=== PATIENT | female | born 1980 | race Caucasian/White ===

== ENCOUNTER 2017-10-10 02:50 | Emergency (ER) | payer OTHER ==
[~2017-10-10] VITALS: Ht 162.6 cm; Wt 93.0 kg
--- NOTE | 2017-10-10 03:48 | PHYS DOC ---
Past History Past Medical History: Anxiety, GERD Additional Past Medical Histor: ADHD, factor V Leiden deficiency, anxiety, reflux, neuropathy, seasonal all Smoking: Non-smoker Alcohol Use: None Drug Use: None Adult General Chief Complaint Chief Complaint: COUGH HPI HPI Patient is a pleasant 37-year-old female with history of factor V Leiden deficiency and prior pulmonary embolism in 2013 on chronic Coumadin therapy with a history of reflux, ADHD, chronic anxiety, inflammation, peripheral neuropathy, seasonal allergies, insomnia, restless leg syndrome, and chronic pain who presents with cough and tingling of her week. She was seen by her primary care doctor Dr. Weinstein placed on a course of Tamiflu for flulike symptoms as the family had similar symptoms in the past. He comes in today because his chest pain associated with her cough has gotten worse. It is center of her chest only there when he coughs with mild sore throat, no production with his cough. No particular shortness of breath other than with cough. She's got no exertional dyspnea, she feels tired and frustrated that she is achy all over. Patient denies any travel outside the country or recent antibiotic use. She's been trying [id number] medications without much in way of improvement and clearing Sudafed, Tessalon Perles and TheraFlu Review of Systems Review of Systems Constitutional: Fevers and chills at home subjectively Eyes: Denies change in visual acuity, redness, or eye pain [] HENT: Moderate nasal congestion and sore throat with cough Respiratory: Nonproductive cough no shortness of breath Cardiovascular: No additional information not addressed in HPI [] GI: Denies abdominal pain, nausea, vomiting, bloody stools or diarrhea [] : Denies dysuria or hematuria [] Musculoskeletal: Denies back pain or joint pain [] Integument: Denies rash or skin lesions [] Neurologic: Denies headache, focal weakness or sensory changes she has generalized myalgias[] Endocrine: Denies polyuria or polydipsia [] All other systems were reviewed and found to be within normal limits, except as documented in this note. Physical Exam Physical Exam Constitutional: Well developed, well nourished, patient is obese nondiaphoretic not short of breath she is obviously uncomfortable and very anxious HENT: Normocephalic, atraumatic, bilateral external ears normal, oropharynx moist mild erythema without any oral exudates, nose normal. TMs clear bilaterally no facial tenderness to palpation or swelling.[] Neck: Normal range of motion, no tenderness, supple, no stridor. [] Cardiovascular:Heart rate regular rhythm, no murmur [] Lungs & Thorax: Bilateral breath sounds clear to auscultation [] Skin: Warm, dry, no erythema, no rash. Neurologic: Alert and oriented X 3, normal motor function, normal gait Psychologic: Patient is somewhat anxious[] EKG EKG [] Radiology/Procedures Radiology/Procedures [] Course & Med Decision Making Course & Med Decision Making Pertinent Labs and Imaging studies reviewed. (See chart for details) This patient with a history of anxiety, factor V Leiden deficiency and multiple medical problems include reflux ADHD and seasonal allergies presents with chest pain that began with a cough since continued to worsen with this cough for the last week or so. Patient's symptoms are now continuous she is very anxious on physical exam and she has myalgias consistent with the flu. Given 2 by mouth hydrocodone and Ativan on arrival to help with her symptoms as we screened her for flu and did PA and lateral chest x-ray. PA and lateral chest x-ray read by me at approximately 4:30 AM demonstrates no occult pulmonary infiltrate, pneumothorax or pneumomediastinum. Patient is still very anxious pending influenza. Swab at 5:10 AM is returned negative, patient is still in a great deal of distress. Anxious despite giving treatment and not having any cough here in the emergency department we have decided to move her from the fast track to regular bed placement IV line for fluids antiemetics pain medications and EKG and appropriate cardiac workup. But I will check her INR to ensure that her Coumadin levels are therapeutic and if necessary complete a CT angios the chest to look for other etiologies of her chest pain. Time is now 6 AM and will care to the oncoming physician Dr. Garcia, and is continued evaluation and response to therapy. Differential diagnosis for chest pain: Pericarditis, myocarditis, endocarditis, pneumothorax, pneumonia, aortic dissection, esophageal spasm, esophagitis, peptic ulcer disease, acute coronary syndrome, mediastinitis, Boerhaave syndrome , musculoskeletal chest wall pain, costochondritis, intercostal strain, rib fracture, pulmonary contusion, pneumonitis, pleural effusion, pericardial effusion, pericardial tamponode, and pleurisy. Considered upon arrival. History: Can be used just for disposition and risk stratification Highly suspicious 2 points moderately suspicious 1. slightly suspicious 0 point EKG: ST segment depression 2. nonspecific repolarization disturbance 1. normal 0 point Age: Greater than 65 2 points, 65-45 1., less than 45 years old 0 points Risk factors:> 3 risk factors 2 points, 1-2 risk factors one point, no risk factors 0 point Troponin: > 2 times normal 2 points, 1-2 times normal 1., normal limits 0 point Total score: Score % pts MACE/n MACE Policy 0-3 32% 1.9% 0.05% Discharge 4-6 51% 413/3136 13% 1.3% Observation Risk management 7-10 17% 518/1045 50% 2.8% Observation Treatment, CAG 0717 [facility] to [facility] 0600 pending his FOR PT/INR. Patient had INR of 4.1 and it was sent for possible pe and instructed to hold on Coumadin today and follow up with her primary care physician for recheck INR tomorrow. EKG at 0 624 showed normal sinus rhythm at rate of 71 with T wave abnormality in anteroseptal dates and prolonged QT without acute ST and T wave abnormality. Liver function tests was mildly elevated and patient instructed to follow up with her primary care physician. Patient treated with several medications including Dilaudid and Ativan by nighttime ER physician and her O2 sat dropped to 90s and was started on oxygen and later on her O2 sat increased to 95% at room air. Dragon Disclaimer Dragon Disclaimer This electronic medical record was generated, in whole or in part, using a voice recognition dictation system. Departure Departure: Impression: Primary Impression: Pleurisy Additional Impressions: Pleuritic chest pain Elevated liver function tests Anticoagulated on Coumadin Anxiety Disposition: HOME, SELF-CARE (At 0717) Condition: IMPROVED Referrals: GUZMAN WEINSTEIN MD (PCP) Patient Instructions: Pleurisy Additional Instructions: Do not take Coumadin today and check with your care physician tomorrow for checking INR Take plenty of liquids Return to ER if not getting better Scripts Methylprednisolone (MEDROL) 4 Mg Tab.ds.pk 1 PKG PO UD, #1 PKG Prov: FIONA GARCIA MD 10/10/17 Problem Qualifiers GEOVANI RICO MD Oct 10, 2017 03:48 FIONA GARCIA MD Oct 10, 2017 07:24
[2017-10-10] MEDS ORDERED: HYDROcodone/APAP 5/325MG 1 TAB TABLET PO ONE (04:00)
[2017-10-10] MEDS ORDERED: LORazepam 1 MG TABLET PO ONE (04:00)
[2017-10-10 05:02] LABS: INFLUENZA A PATIENT NEGATIVE (NEGATIVE); INFLUENZA B PATIENT NEGATIVE (NEGATIVE)
[2017-10-10] MEDS ORDERED: HYDROmorphone PF 2 MG/ML VIAL IV/SQ PRN (05:15)
[2017-10-10] MEDS ORDERED: IV NORMAL SALINE 1,000ML 1,000 ML IV ONE (06:00)
[2017-10-10 06:04] LABS: BASO # 0.1 x10^3/uL (0.0-0.2); BASO % 1 % (0-3); EOS # 0.1 x10^3/uL (0.0-0.7); EOS % 1 % (0-3); HEMATOCRIT 35.3 % (36.0-47.0); HEMOGLOBIN 11.4 g/dL (12.0-15.5); LYMPH # 1.9 x10^3/uL (1.0-4.8); LYMPH % 15 % (24-48); MEAN CORPUSCULAR HEMOGLOBIN 27 pg (25-35); MEAN CORPUSCULAR HGB CONC 32 g/dL (31-37); MEAN CORPUSCULAR VOLUME 83 fL (79-100); MONO # 0.5 x10^3/uL (0.0-1.1); MONO % 4 % (0-9); NEUT # 10.2 x10^3uL (1.8-7.7); NEUT % 80 % (31-73); PLATELET COUNT 379 x10^3/uL (140-400); RED BLOOD COUNT 4.23 x10^6/uL (3.50-5.40); RED CELL DISTRIBUTION WIDTH 17.9 % (11.5-14.5); WHITE BLOOD COUNT 12.7 x10^3/uL (4.0-11.0)
[2017-10-10 06:38] LABS: ALBUMIN 3.4 g/dL (3.4-5.0); CALCIUM 8.5 mg/dL (8.5-10.1); CREATININE 0.9 mg/dL (0.6-1.0); DIRECT BILIRUBIN 0.1 mg/dL (0.0-0.2); GFR 69.7; POTASSIUM 3.5 mmol/L (3.5-5.1); TOTAL BILIRUBIN 0.3 mg/dL (0.2-1.0); TOTAL PROTEIN 7.6 g/dL (6.4-8.2)
--- NOTE | 2017-10-10 07:11 | RAD ---
Chest, 2 views, 10/10/2017: History: Cough The heart size and pulmonary vascularity are normal. The lungs are clear. There is no evidence of pleural fluid. Mild spurring is present in the spine. IMPRESSION: No acute cardiopulmonary abnormality is detected.
[2017-10-10] MEDS ORDERED: METH4TAB2 PO (07:19)
[2017-10-10 07:40] VITALS: BP 107/73
--- NOTE | 2017-10-11 16:27 | EKG ---
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
== END 2017-10-10 07:40 | disposition home or self-care (01) ==
LOC: ER 02:50
DX: R09.1 Pleurisy (principal); R07.81 Pleurodynia; R79.89 Other specified abnormal findings of blood chemistry; F41.9 Anxiety disorder, unspecified; K21.9 Gastro-esophageal reflux disease without esophagitis; F90.9 Attention-deficit hyperactivity disorder, unspecified type; G89.29 Other chronic pain; G25.81 Restless legs syndrome; G47.00 Insomnia, unspecified; D68.51 Activated protein C resistance; Z86.711 Personal history of pulmonary embolism; Z79.01 Long term (current) use of anticoagulants
CPT/HCPCS: 36415; 71046; 80048; 80076; 82553; 83690; 83735; 83880; 84443; 84484; 85025; 85610; 85730; 87804; 93005; 96361; 96374; 99285; J1170; J7030